=== PATIENT | female | born 2000 | race Caucasian/White ===

== ENCOUNTER 2024-06-16 04:35 | Emergency (ER) | payer OTHER ==
[~2024-06-16] VITALS: Ht 157.5 cm; Wt 53.1 kg
[2024-06-16 04:37] VITALS: BP 130/84; PULSE 109; RESP 18; TEMP 98.1; O2SAT 99
[2024-06-16 04:51] VITALS: BP 130/84; PULSE 109; RESP 18; TEMP 98.1; O2SAT 99
--- NOTE | 2024-06-16 04:51 | NUR ---
PATIENT BIB POLICE DEPT. PATIENT EXAMINED BY DR. GUADALUPE. PATIENT MEDICALLY CLEARED AND RELEASED IN CUSTODY IN STABLE CONDITION. ORIGINAL PRE-BOOK FORM GIVEN TO OFFICER TAMMIE [id number] [facility].
== END 2024-06-16 04:51 ==
LOC: MED 04:35
DX: Z04.1 Encounter for examination and observation following transport accident (principal); V89.2XXA Person injured in unspecified motor-vehicle accident, traffic, initial encounter; Y93.89 Activity, other specified; Y92.89 Other specified places as the place of occurrence of the external cause; Y99.8 Other external cause status
CPT/HCPCS: 99283